=== PATIENT | female | born 1975 ===

== ENCOUNTER 2019-04-08 14:17 | Emergency (ER) | payer OTHER ==
[2019-04-08] MEDS ORDERED: 0.9 % SODIUM CHLORIDE 1,000 ML BAG IV ONE ×2 (14:47→16:10)
[2019-04-08] MEDS ORDERED: ONDANSETRON HCL IV 4 MG/2 ML VIAL IV ONE (14:47)
[2019-04-08] MEDS ORDERED: HYDROMORPHONE HCL 2 MG/ML VIAL IVP ONE ×2 (14:48→16:56)
[2019-04-08 15:32] LABS: ABSOLUTE NEUTROPHIL COUNT 5.87; BASO % 0.2 % (0-6); EOS % 1.2 % (0-6); GRAN % 72.1 % (47-80); HEMATOCRIT 42.1 % (35.0-47.0); HEMOGLOBIN 14.1 gm/dl (11.6-16.0); LYMPH % 20.7 % (16-45); MEAN CELL VOLUME 82.4 fl (81-97); MEAN CORPUSCULAR HEMOGLOBIN 27.6 pg (27-33); MEAN CORPUSCULAR HGB CONC 33.5 g/dl (32-36); MONO % 5.8 % (0-9); PLATELET COUNT 319 K/uL (130-400); RED BLOOD COUNT 5.11 M/uL (3.80-5.40); WHITE BLOOD COUNT W/O DIFF 8.2 K/uL (4.2-12.2)
[2019-04-08 15:46] LABS: BLOOD UREA NITROGEN 14 mg/dL (6-20); CREATININE 0.9 mg/dL (0.5-0.9); EST GLOMERULAR FILTRATION RATE > 60 mL/min
[2019-04-08 15:49] LABS: GLUCOSE,RANDOM 115 mg/dL (74-109)
--- NOTE | 2019-04-08 16:22 | CT SCAN REPORT ---
EXAMINATION: CT Abdomen and Pelvis without IV Contrast EXAM DATE: 04/08/2019 3:42 PM TECHNIQUE: Standard protocol CT imaging of the abdomen and pelvis was performed without intravenous c ontrast. INDICATION: rlq pain COMPARISON: None ENCOUNTER: Not applicable CT ABDOMEN AND PELVIS FINDINGS: Lung Bases: Included extent of the lung bases are clear. Hepatobiliary: The liver has a normal size with a smooth surface. Diffuse fatty infiltration of the liver. Status post cholecystectomy. Pancreas: The pancreas is normal. Spleen: Unremarkable Adrenals: The adrenal glands are normal. Kidneys, Ureters, & Bladder: Both kidneys have a normal size and morphology. There is no hydronephro sis. No renal calculi are present. Both ureters have a normal course and caliber and the urinary blad jennifer a normal morphology and uniform wall thickness. No ureteral or bladder calculi are identified. Gastrointestinal: The stomach and small bowel are normal with no obstruction or inflammation. The tessa endix is normal. The large bowel is within normal limits. Reproductive Organs: There is a prominent right adnexa in the right hemipelvis, measuring 3.3 x 3.3 c m. No focal adjacent reactive changes. If clinical indication persists, correlation with pelvic ultra sound may be helpful. Small underlying fundal fibroid suspected to the right of midline. Left adnexal cystic lesion noted. Lymphatic System: There is no adenopathy within the abdomen or pelvis. Vasculature: Normal caliber abdominal aorta Peritoneum: No free fluid, free air, or inflammation Abdominal wall & Musculoskeletal: No suspicious bone lesions. Degenerative changes at L5-S1 with vacu um disc phenomenon. Small ventral hernia at the level umbilicus without evidence of herniated bowel o r bowel obstruction. Assessment of the solid organs, soft tissues, and vascular structures is overall limited on noncontra st imaging, IMPRESSION: No CT evidence for acute appendicitis. Diffuse fatty infiltration of the liver noted. Status post cho lecystectomy. Prominent right adnexa noted in the right hemipelvis. No evidence of ascites or lymphad enopathy. Dictated by: Dwayne Foster MD on 04/08/2019 4:04 PM. .
[2019-04-08 16:27] LABS: URINE APPEARANCE CLEAR; URINE BILIRUBIN NEGATIVE (NEGATIVE); URINE BLOOD NEGATIVE (NEGATIVE); URINE COLOR YELLOW; URINE GLUCOSE (UA) NEGATIVE (NEGATIVE); URINE KETONE NEGATIVE (NEGATIVE); URINE LEUKOCYTE ESTERASE NEGATIVE (NEGATIVE); URINE NITRITE NEGATIVE (NEGATIVE); URINE PROTEIN NEGATIVE (NEGATIVE); URINE UROBILINOGEN 0.2 E.U./dL (0.20 - 1.00)
--- NOTE | 2019-04-08 17:03 | Emergency Department Record ---
History of Present Illness - General Chief Complaint: Abdominal Pain Stated Complaint: ABD PAIN/LRQ Time Seen by Provider: 04/08/19 14:43 Source: Patient, Family Mode of Arrival: Ambulatory Limitations: No limitations - History of Present Illness Initial Comments: pt c/o severe rlq pain today that is getting progressively worse. it is sharp and constant, nothing helps it. she has nausea but no other symtoms. she has had this pain before off and on since november and [facility] not found MD Complaint: Abdominal pain Onset/Timin -: Days(s) Location: RLQ Quality: Sharp Consistency: Constant Associated Symptoms: Nausea - Related Data Patient : No Home Medications Medication Instructions Recorded Confirmed Last Taken Bupropion HCl 100 mg PO BID 04/08/19 04/08/19 Unknown Duloxetine HCl [Cymbalta] 60 mg PO DAILY 04/08/19 04/08/19 Unknown Fluticasone Propionate [Flonase] 2 spray EACH NARES DAILY 04/08/19 04/08/19 Unknown Montelukast Sodium [Singulair] 10 mg PO QHS 04/08/19 04/08/19 Unknown Ondansetron [Zofran Odt] 8 mg PO Q8H 04/08/19 04/08/19 Unknown Tolterodine Tartrate [Detrol LA] 4 mg PO DAILY 04/08/19 04/08/19 Unknown Triamterene/Hydrochlorothiazid 1 each PO DAILY 04/08/19 04/08/19 Unknown [Triamterene-Hctz 37.5-25 mg Cp] Previous Rx's Medication Instructions Recorded Hydrocodone/Acetaminophen [Milan 1 each PO Q6HR #5 tablet 04/08/19 5-325 Tablet] Allergies Allergy/AdvReac Type Severity Reaction Status Date / Time ibuprofen [From Motrin] Allergy Intermediate HIVES Verified 04/08/19 14:47 red dye Allergy RASH Verified 04/08/19 14:47 Travel Screening - Travel/Exposure Within Last 30 Days Have you traveled within the last 30 days?: No - Travel/Exposure Within Last Year Have you traveled outside the [place] in the last year?: No - Additonal Travel Details Have you been exposed to anyone with a communicable illness?: No - Travel Symptoms Symptom Screening: None Review of Systems Reviewed: No additional complaints except as noted below Constitutional: Reports: As per HPI. Denies: Chills, Fever, Malaise, Night sweats, Weakness, Weight change Eyes: Reports: As per HPI. Denies: Eye discharge, Eye pain, Photophobia, Vision change ENT: Reports: As per HPI. Denies: Congestion, Dental pain, Ear pain, Epistaxis, Hearing loss, Throat pain Respiratory: Reports: As per HPI. Denies: Cough, Dyspnea, Hemoptysis, Stridor, Wheezes Cardiovascular: Reports: As per HPI. Denies: Arrhythmia, Chest pain, Dyspnea on exertion, Edema, Murmurs, Orthopnea, Palpitations, Paroxysmal nocturnal dyspnea, Rheumatic Fever, Syncope Endocrine: Reports: As per HPI. Denies: Fatigue, Heat or cold intolerance, Polydipsia, Polyuria Gastrointestinal: Reports: As per HPI, Abdominal pain, Nausea. Denies: Constipation, Diarrhea, Hematemesis, Hematochezia, Melena, Vomiting Genitourinary: Reports: As per HPI. Denies: Abnormal menses, Discharge, Dy spareunia, Dysuria, Frequency, Hematuria, Incontinence, Retention, Urgency Musculoskeletal: Reports: As per HPI. Denies: Arthralgia, Back pain, Gout, Joint swelling, Myalgia, Neck pain Skin: Reports: As per HPI. Denies: Bruising, Change in color, Change in hair/nails, Lesions, Pruritus, Rash Neurological: Reports: As per HPI. Denies: Abnormal gait, Confusion, Headache, Numbness, Paresthesias, Seizure, Tingling, Tremors, Vertigo, Weakness Psychiatric: Reports: As per HPI. Denies: Anxiety, Auditory hallucinations, Depression, Homicidal thoughts, Suicidal thoughts, Visual hallucinations Hematological/Lymphatic: Reports: As per HPI. Denies: Anemia, Blood Clots, Easy bleeding, Easy bruising, Swollen glands Past Medical History - SOCIAL HISTORY Smoking Status: Never smoker Alcohol Use: None Drug Use: None - RESPIRATORY Hx Respiratory Disorders: No - CARDIOVASCULAR Hx Cardio Disorders: No - NEURO Hx Neuro Disorders: No - GI Hx GI Disorders: Yes Hx Abdominal Pain: Yes - Hx Genitourinary Disorders: No - ENDOCRINE Hx Endocrine Disorders: No - MUSCULOSKELETAL Hx Musculoskeletal Disorders: No - PSYCH Hx Psych Problems: No - HEMATOLOGY/ONCOLOGY Hx Hematology/Oncology Disorders: No Family Medical History Any Significant Family History?: No Physical Exam - General General Appearance: Alert, Oriented x3, Cooperative, Mild distress - Head Head exam: Normal inspection - Eye Eye exam: Normal appearance, PERRL, EOMI Pupils: Normal accommodation - ENT ENT exam: Normal exam, Mucous membranes moist, Normal external ear exam, Normal orophraynx Ear exam: Normal external inspection. negative: External canal tenderness Nasal Exam: Normal inspection. negative: Discharge, Sinus tenderness Mouth exam: Normal external inspection, Tongue normal Teeth exam: Normal inspection. negative: Dental caries Throat exam: Normal inspection. negative: Tonsillar erythema, Tonsillar exudate - Neck Neck exam: Normal inspection, Full ROM. negative: Tenderness - Respiratory Respiratory exam: Normal lung sounds bilaterally. negative: Respiratory distress - Cardiovascular Cardiovascular Exam: Regular rate, Normal rhythm, Normal heart sounds - GI/Abdominal GI/Abdominal exam: Soft, Normal bowel sounds, Tenderness (rlq) - Rectal Rectal exam: Deferred - exam: Deferred - Extremities Extremities exam: Normal inspection, Full ROM, Normal capillary refill. negative: Tenderness - Back Back exam: Reports: Normal inspection, Full ROM. Denies: Muscle spasm, Rash noted, Tenderness - Neurological Neurological exam: Alert, CN II-XII intact, Normal gait, Oriented X3 - Psychiatric Psychiatric exam: Normal affect, Normal mood - Skin Skin exam: Dry, Intact, Normal color, Warm Course Vital Signs 04/08/19 04/08/19 04/08/19 14:18 16:11 16:50 Temperature 97.8 F Pulse Rate 77 Pulse Rate [ 76 74 Pulse Ox Probe] Respiratory 20 16 16 Rate Blood Pressure 140/90 Blood Pressure 113/69 114/63 [Left Arm] Pulse Ox 96 94 L 96 - Reevaluation(s) Reevaluation #1: 04/08/19 18:40 us shows small cyst and small fibroid in uterus 04/08/19 18:45 ct neg for acute process Medical Decision Making - Lab Data Result diagrams: 04/08/19 14:36 04/08/19 14:36 Lab Results 04/08/19 04/08/19 04/08/19 Range/Units 14:36 14:36 Unknown WBC 8.2 (4.2-12.2) K/uL RBC 5.11 (3.80-5.40) M/uL Hgb 14.1 (11.6-16.0) gm/dl Hct 42.1 (35.0-47.0) % MCV 82.4 (81-97) fl MCH 27.6 (27-33) pg MCHC 33.5 (32-36) g/dl RDW 14.0 (11.5-14.5) % Plt Count 319 (130-400) K/uL MPV 10.0 (7.4-10.4) fl Gran % 72.1 (47-80) % Lymphocytes % 20.7 (16-45) % Monocytes % 5.8 (0-9) % Eosinophils % 1.2 (0-6) % Basophils % 0.2 (0-6) % Absolute Neutrophils 5.87 Sodium 136 (136-145) mmol/L Potassium 3.8 (3.4-4.5) mmol/L Chloride 99 (98-107) mmol/L Carbon Dioxide 25.0 (22-29) mmol/L Anion Gap 12.0 (7-16) BUN 14 (6-20) mg/dL Creatinine 0.9 (0.5-0.9) mg/dL Estimated GFR > 60 mL/min Random Glucose 115 H (74-109) mg/dL Calcium 9.2 (8.6-10.0) mg/dL Urine Color Yellow Urine Appearance Clear Urine pH 6.0 (5.0-8.0) Ur Specific Harvey 1.015 (1.002-1.030) Urine Protein Negative (NEGATIVE) Urine Glucose (UA) Negative (NEGATIVE) Urine Ketones Negative (NEGATIVE) Urine Blood Negative (NEGATIVE) Urine Nitrite Negative (NEGATIVE) Urine Bilirubin Negative (NEGATIVE) Urine Urobilinogen 0.2 (0.20 - 1.00) E.U./dL Ur Leukocyte Esterase Negative (NEGATIVE) Disposition Disposition: Discharge Clinical Impression: Abdominal pain Qualifiers: Abdominal location: right lower quadrant Qualified Code(s): R10.31 - Right lower quadrant pain Disposition: Home, Self-Care Condition: (1) Good Instructions: Abdominal Pain (ED) Additional Instructions: follow up with manufacturing machine operator. return sooner if worse Prescriptions: Hydrocodone/Acetaminophen [Milan 5-325 Tablet] 1 each PO Q6HR #5 tablet Quality - Quality Measures Quality Measures: N/A - Blood Pressure Screening Does Patient Have Any of the Following: Active Dx of HTN Blood Pressure Classification: Hypertensive Reading Systolic Measurement: 140 Diastolic Measurement: 90 Screening for High Blood Pressure: Patient Exclusion, Hx of HTN [[id number]]
--- NOTE | 2019-04-08 18:29 | ULTRASOUND REPORT ---
EXAMINATION: US Pelvic w/ TV & doppler if indicated EXAM DATE: 04/08/2019 6:05 PM TECHNIQUE: Transabdominal and transvaginal ultrasound of the pelvis. Images were recorded and store d on PACS. INDICATION: rlq pain right lower quadrant pain intermittently off and on since October 2018. Pain wors e today. No bleeding. History of ablation 1.5 years ago. No period. COMPARISON: No prior ultrasound. Correlation with 04/08/2019 CT. TRANSABDOMINAL FINDINGS: Uterus: The uterus measures 7.1 x 4.2 x 5.1 cm. The endometrial stripe does not image well transabd ominally and cannot be accurately measured. The myometrium is mildly heterogeneous and hypoechoic wh ich can indicate fibroid involvement. Right Ovary: The right ovary measures 29 x 22 mm. Normal in appearance. Left Ovary: The left ovary cannot be seen transabdominally. Bilateral adnexa: No adnexal cystic or solid mass or other abnormality Other pelvic findings: No free fluid TRANSVAGINAL FINDINGS: Transvaginal scanning was done for improved detail and to visualize the left ovary. Uterus: Using this technique, endometrial stripe thickness is 5.2 mm. There is a mainly anechoic lesi on in the right side of the fundus of the uterus measuring 12 x 12 x 9 mm. It shows increased through transmission consistent with a cystic character and shows no vascular flow with Doppler. It is not a ssociated with the endometrial stripe. There is an ill-defined heterogeneous lesion in the anterior a spect of the fundus/body of the uterus measuring 24 x 19 x 27 mm. There is no associated flow with Do ppler. Right ovary: Appears unremarkable. It contains approximately three follicles or simple cysts measurin g up to 8 mm in diameter. Left ovary: The left ovary measures 20 x 35 x 13 mm. It appears unremarkable and contains a 10 mm fo llicle or simple cyst. Other adnexal: No additional finding. Cervix: Multiple nabothian cysts. Free fluid: None. Duplex Doppler ultrasound including color flow and spectral analysis was performed due to indication/ history of pain. Right ovary shows arterial and venous blood flow with an arterial peak systolic velocity of approxima tely 5-10 cm/sec. Left ovary shows arterial and venous blood flow with an arterial peak systolic velocity of approximat tara five cm/sec. IMPRESSION: Heterogeneous uterus containing a 12 mm cystic lesion at the fundus level on the right and a 27 mm he terogeneous lesion at the body/fundus level anteriorly, probably a fibroid. Endometrial stripe thickness is normal at 5.2 mm. Unremarkable right and left ovaries. No free fluid. Dictated by: Andrew Boston MD on 04/08/2019 6:12 PM. .
== END 2019-04-08 19:02 | disposition home or self-care (01) ==
LOC: ER 14:17
DX: R10.31 Right lower quadrant pain (principal); R11.0 Nausea; I10 Essential (primary) hypertension
CPT/HCPCS: 74176; 76830; 76856; 80048; 81003; 85025; 96361; 96374; 96375; 96376; 99284; J2405; J7030